=== PATIENT | male | born 1965 | race Caucasian/White ===

== ENCOUNTER 2021-09-20 17:35 | Emergency (ER) | payer MEDICAID ==
[2021-09-20] MEDS ORDERED: Bacitracin Oint 1 GM U/D Packet TOP ONE (19:31)
== END 2021-09-20 21:55 | disposition home or self-care (01) ==
LOC: FB.ED 17:35
DX: S90.821A Blister (nonthermal), right foot, initial encounter (principal); L97.519 Non-pressure chronic ulcer of other part of right foot with unspecified severity; D69.6 Thrombocytopenia, unspecified; Z59.00 Homelessness unspecified
CPT/HCPCS: 11042; 36415; 82947; 85027; 99283-25

== ENCOUNTER 2021-09-21 05:28 | Emergency (ER) | payer MEDICAID | END 2021-09-21 09:20 | disposition home or self-care (01) | LOC: FB.ED 05:28 | DX: R60.0 Localized edema (principal); Z59.01 Sheltered homelessness; F17.210 Nicotine dependence, cigarettes, uncomplicated | CPT/HCPCS: 99283 ==